=== PATIENT | male | born 1995 | race Caucasian/White ===

== ENCOUNTER 2017-11-26 13:57 | Emergency (ER) | payer OTHER ==
[2017-11-26] MEDS ORDERED: Ibuprofen TAB* 800 MG PO ONE (14:25)
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
--- NOTE | 2017-11-26 15:24 | RAD ---
HISTORY: right rib pain COMPARISONS: None VIEWS: 5, Frontal view of the chest with frontal and oblique views of the right hemithorax. FINDINGS: There is no displaced rib fracture or pneumothorax. The visualized lungs are clear. IMPRESSION: NO DISPLACED RIB FRACTURE OR PNEUMOTHORAX.
[2017-11-26 16:05] VITALS: BP 144/80
== END 2017-11-26 15:35 | disposition home or self-care (01) ==
LOC: ED 13:57
DX: R07.81 Pleurodynia (principal)
CPT/HCPCS: 99282; A9270-GY

== ENCOUNTER 2019-01-05 08:29 | Emergency (ER) | payer OTHER ==
[2019-01-05 08:44] VITALS: BP 149/79
[2019-01-05] MEDS ORDERED: Amoxicillin/Clavulanate TAB* 875 MG PO ONE ×2 (09:02)
[2019-01-05] MEDS ORDERED: Tetan/Diph/Pertus SYR(Tdap)* 0.5 ML SYR(BOOSTRIX) use SYR IM ONE (09:21)
[2019-01-05 10:06] LABS: HIV 4th Generation Nonreactive (Nonreactive)
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
[2019-01-06 21:18] LABS: Hepatitis B Surface Antigen Negative (Negative)
[2019-01-06 21:35] LABS: Hepatitis B Surface Ab Immune (Immune)
[2019-01-06 21:36] LABS: Hepatitis C Antibody Negative (Negative)
== END 2019-01-05 09:06 | disposition home or self-care (01) ==
LOC: ED 08:29
DX: S31.151A Open bite of abdominal wall, left upper quadrant without penetration into peritoneal cavity, initial encounter (principal); W50.3XXA Accidental bite by another person, initial encounter; Y92.89 Other specified places as the place of occurrence of the external cause; Y99.0 Civilian activity done for income or pay
CPT/HCPCS: 36415; 86706; 86803; 87340; 87389; 90471; 90715; 99282; A9270-GY